=== PATIENT | male | born 1995 | race Caucasian/White ===

== ENCOUNTER 2020-03-15 11:32 | Inpatient (IN) | payer OTHER ==
[~2020-03-15] VITALS: Ht 177.8 cm; Wt 64.7 kg
--- NOTE | 2020-03-15 12:02 | NUR ---
PT STATES HE THINKS HE'S GOING INTO DKA, C/O NAUSEA, CP, AND SOB. 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 CALL LIGHT PLACED WITHIN REACH.
[2020-03-15] MEDS ORDERED: INSU100C SQ-INSULIN (12:07)
[2020-03-15] MEDS ORDERED: INSU100C5 SQ-INSULIN (12:07)
[2020-03-15] MEDS ORDERED: ONDANSETRON 2MG/ML, 2ML ONE (12:20)
[2020-03-15 12:46] LABS: PH, VENOUS 7.239 pH (7.320-7.420)
[2020-03-15 12:47] LABS: BASOPHILS % (AUTO) 1 % (0-1); EOSINOPHILS % (AUTO) 2 % (1-7); LYMPHOCYTES % (AUTO) 21 % (22-44); MEAN CORPUSCULAR HEMOGLOBIN 28.8 pg (27.5-34.5); MEAN CORPUSCULAR HGB CONC 33.8 g/dL (33.2-36.2); MONOCYTES % (AUTO) 4 % (2-9); NEUTROPHILS % (AUTO) 72 % (42-75); PLATELET COUNT 328 x10^3/uL (130-400); RED BLOOD COUNT 5.88 x10^6/uL (4.38-5.82); RED CELL DISTRIBUTION WIDTH 13.5 % (9.4-14.8)
[2020-03-15 12:48] LABS: MD NO
[2020-03-15 12:59] LABS: ALBUMIN 4.4 g/dL (3.4-5.0); ANION GAP 17 mmol/L (5-15); CALCIUM 9.4 mg/dL (8.5-10.1); CHLORIDE 98 mmol/L (98-107)
[2020-03-15] MEDS ORDERED: SODIUM CHLORIDE 0.9% 1,000ML IVBOLUS ONE ×2 (13:00→14:30)
[2020-03-15] MEDS ORDERED: ONDANSETRON 2MG/ML, 2ML IVPush ONE (13:00)
[2020-03-15 13:03] LABS: ALANINE AMINOTRANSFERASE 30 U/L (12-78); ALKALINE PHOSPHATASE 137 U/L (45-117); BILIRUBIN,TOTAL 0.9 mg/dL (0.2-1.0); CREATININE 0.96 mg/dL (0.7-1.3)
[2020-03-15 13:19] LABS: MICROSCOPIC NOT IND
[2020-03-15 13:25] LABS: ACETONE, SERUM Moderate(40mg/dL) (Negative)
[2020-03-15] MEDS ORDERED: INSULIN REGULAR 100 UNITS/ML, 3ML VIAL SQ-INSULIN ONE (14:30)
[2020-03-15] MEDS ORDERED: INSULIN SINGLE DOSE, ER ONE (14:33)
--- NOTE | 2020-03-15 15:11 | NUR ---
REPORT GIVEN TO RECEIVING RN, DISCUSSED NEED FOR [facility] TO BE CHECKED UPON ARRIVAL TO FLOOR.
[2020-03-15 15:34] LABS: ANION GAP 18 mmol/L (5-15); CALCIUM 8.8 mg/dL (8.5-10.1); CHLORIDE 103 mmol/L (98-107); CREATININE 0.86 mg/dL (0.7-1.3)
[2020-03-15] MEDS ORDERED: ACETAMINOPHEN 325 MG TABLET PO PRN (17:00)
[2020-03-15] MEDS ORDERED: INSULIN LISPRO 100 UNIT/ML, 3ML VIAL IVPush ONE (17:00)
[2020-03-15] MEDS ORDERED: ONDANSETRON 2MG/ML, 2ML IVPush PRN (17:00)
[2020-03-15] MEDS ORDERED: ONDANSETRON ODT 4 MG PO PRN (17:00)
[2020-03-15] MEDS ORDERED: TEMAZEPAM 15 MG CAPSULE PO PRN (17:00)
[2020-03-15] MEDS ORDERED: METOCLOPRAMIDE 5 MG/ML, 2ML IVPush PRN (17:00)
[2020-03-15 17:31] VITALS: BP 116/70
[2020-03-15] MEDS ORDERED: ENOXAPARIN 40 MG/0.4 ML SQ SCH (18:00)
[2020-03-15 18:01] LABS: ANION GAP 11 mmol/L (5-15); CALCIUM 8.4 mg/dL (8.5-10.1); CHLORIDE 106 mmol/L (98-107); CREATININE 0.88 mg/dL (0.7-1.3)
[2020-03-15 18:05] LABS: TROPONIN I < 0.015 ng/mL (0.000-0.045)
[2020-03-15] MEDS: INSULIN LISPRO 100 UNIT/ML, 3ML VIAL SQ-INSULIN SCH (18:42)
[2020-03-15] MEDS: NS + 20MEQ KCL 1,000 ML IV SCH (18:43)
[2020-03-15 19:48] VITALS: BP 105/69
[2020-03-15] MEDS ORDERED: INSULIN GLARGINE 100 UNITS/ML, PEN SQ-INSULIN SCH (21:00)
[2020-03-15 21:51] LABS: ANION GAP 8 mmol/L (5-15); CALCIUM 7.8 mg/dL (8.5-10.1); CHLORIDE 107 mmol/L (98-107); CREATININE 1.24 mg/dL (0.7-1.3)
[2020-03-16] MEDS: NS + 20MEQ KCL 1,000 ML IV SCH ×3 (00:42→11:56)
[2020-03-16 01:42] VITALS: BP 95/53
[2020-03-16 02:05] VITALS: BP 104/64
[2020-03-16 02:44] LABS: ANION GAP 5 mmol/L (5-15); CALCIUM 7.7 mg/dL (8.5-10.1); CHLORIDE 110 mmol/L (98-107); CREATININE 0.96 mg/dL (0.7-1.3)
[2020-03-16 07:31] LABS: ANION GAP 6 mmol/L (5-15); CALCIUM 7.9 mg/dL (8.5-10.1); CHLORIDE 113 mmol/L (98-107); CREATININE 0.89 mg/dL (0.7-1.3)
[2020-03-16 07:59] VITALS: BP 113/74
[2020-03-16] MEDS: INSULIN LISPRO 100 UNIT/ML, 3ML VIAL SQ-INSULIN SCH ×2 (08:10→11:29)
[2020-03-16 11:10] LABS: ANION GAP 6 mmol/L (5-15); CALCIUM 7.9 mg/dL (8.5-10.1); CHLORIDE 109 mmol/L (98-107)
== END 2020-03-16 13:06 | disposition home or self-care (01) | DRG 639 ==
LOC: ED 14:41 → SUATTDRO 15:27 → EDIP 16:21 → 3N 17:15 → DCLOUNGE 03-16 12:57
PROVIDERS: ADMIT Internal Medicine; ATTEND Internal Medicine
DX: E10.10 Type 1 diabetes mellitus with ketoacidosis without coma (principal); F17.210 Nicotine dependence, cigarettes, uncomplicated; Z79.4 Long term (current) use of insulin; Z83.3 Family history of diabetes mellitus; Z96.41 Presence of insulin pump (external) (internal); R07.9 Chest pain, unspecified
CPT/HCPCS: 36415; 71045; 80048; 80053; 81003; 82010; 82803; 82962; 83036; 83690; 84484; 85025; 85379; 93005; 96360; 99285; G0378; J1650; J3480; J1815; J1817; J7030

== ENCOUNTER 2020-11-02 09:26 | Inpatient (IN) | payer OTHER ==
[~2020-11-02] VITALS: Ht 177.8 cm; Wt 61.5 kg
[~2020-11-02 09:26] MED LIST: INSU100C SQ-INSULIN; INSU100C5 SQ-INSULIN
--- NOTE | 2020-11-02 09:46 | NUR ---
PT PLACED ON ALL ROOM MONITORING. NS BOLUS INFUSING. VSS. EMESIS BAG AND URINAL AT BS. CALL LIGHT WITHIN REACH. ERP IN TO SEE PT.
[2020-11-02] MEDS ORDERED: DIPHENHYDRAMINE 50 MG/ML, 1ML ONE (09:48)
[2020-11-02] MEDS ORDERED: METOCLOPRAMIDE 5 MG/ML, 2ML ONE (09:48)
--- NOTE | 2020-11-02 09:54 | NUR ---
NS BOLUS FROM [facility] COMPLETED, LR INFUSING PER ERP ORDER.
[2020-11-02] MEDS ORDERED: METOCLOPRAMIDE 5 MG/ML, 2ML IVPush ONE (10:00)
[2020-11-02] MEDS ORDERED: DIPHENHYDRAMINE 50 MG/ML, 1ML IVPush ONE (10:00)
[2020-11-02] MEDS ORDERED: LACTATED RINGERS 1,000 ML IVBOLUS ONE (10:00)
--- NOTE | 2020-11-02 10:10 | NUR ---
LAB IN TO DRAW.
[2020-11-02 10:23] LABS: PH, VENOUS 7.143 pH (7.320-7.420)
[2020-11-02 10:26] LABS: MEAN CORPUSCULAR HEMOGLOBIN 28.2 pg (27.5-34.5); MEAN CORPUSCULAR HGB CONC 32.6 g/dL (33.2-36.2); MEAN PLATELET VOLUME 8.9 fL (7.4-10.4); PLATELET COUNT 310 x10^3/uL (130-400); RED BLOOD COUNT 5.42 x10^6/uL (4.38-5.82); RED CELL DISTRIBUTION WIDTH 13.3 % (9.4-14.8)
[2020-11-02 10:37] LABS: ALANINE AMINOTRANSFERASE 54 U/L (12-78); ALBUMIN 4.2 g/dL (3.4-5.0); ANION GAP 25 mmol/L (5-15); CALCIUM 9.5 mg/dL (8.5-10.1); CHLORIDE 104 mmol/L (98-107)
[2020-11-02 10:40] LABS: ALKALINE PHOSPHATASE 140 U/L (45-117); BILIRUBIN,TOTAL 0.8 mg/dL (0.2-1.0); CREATININE 1.23 mg/dL (0.7-1.3); TOTAL PROTEIN 7.8 g/dL (6.4-8.2)
[2020-11-02] MEDS ORDERED: INSULIN PUMP (10:42)
--- NOTE | 2020-11-02 10:53 | NUR ---
NO VOMITING SINCE MEDS GIVEN IN ER. PT SLEEPING, NAD. MOTHER AT BS. VS UPDATED IN COMPUTER. CALL LIGHT WITHIN REACH.
[2020-11-02 10:58] LABS: ACETONE, SERUM Large (80mg/dL) (Negative)
--- NOTE | 2020-11-02 11:17 | NUR ---
URINE COLLECTED/SENT TO LAB.
[2020-11-02 11:18] LABS: BAND#(MANUAL) 0.89 x10^3/uL; BANDS%(MANUAL) 3 % (0-7); LYMPH#(MANUAL) 2.36 x10^3/uL (1-3.4); LYMPHS% (MANUAL) 8 % (22-44); METAMYELOCYTES% (MANUAL) 1 % (0-1); MONOS#(MANUAL) 0.89 x10^3/uL (0.3-2.7); MONOS% (MANUAL) 3 % (2-9); SEG#(MANUAL) 25.08 x10^3/uL (1.8-6.8); SEGS% (MANUAL) 85 % (42-75)
[2020-11-02 11:19] LABS: <PLATELET ESTIMATE> ADEQUATE; <PLT MORPHOLOGY> NORMAL PLT MORPH; <RBC MORPHOLOGY> NORMAL
[2020-11-02] MEDS ORDERED: ACETAMINOPHEN 325 MG TABLET PO PRN (11:30)
[2020-11-02] MEDS: D5%-0.45NACL+KCL 20MEQ 1,000 ML IV SCH ×2 (11:30→20:37)
[2020-11-02] MEDS ORDERED: SODIUM CHLORIDE 0.9% 1,000 ML IV SCH (11:30)
[2020-11-02] MEDS: ENOXAPARIN 40 MG/0.4 ML SQ SCH (11:30)
--- NOTE | 2020-11-02 11:46 | NUR ---
REPORT CALLED TO [facility]. WILL START INSULIN GTT PRIOR TO TRANSPORT.
[2020-11-02 11:51] LABS: MICROSCOPIC NOT IND
--- NOTE | 2020-11-02 11:53 | NUR ---
REPORT TO [facility]. PT READY FOR TRANSPORT AFTER INSULIN GTT STARTED. MOM TO TURN OFF INSULIN PUMP. MED REQUEST TO PHARMACY FOR INSULIN GTT.
[2020-11-02 12:15] LABS: FREE T4 (FREE THYROXINE) 1.55 ng/dL (0.76-1.46)
[2020-11-02] MEDS: REGULAR INSULIN 100 UNITS in SODIUM CHLORIDE 0.9% 99 ML IV PRN ×2 (12:30→20:47)
[2020-11-02 12:42] VITALS: BP 105/56
[2020-11-02] MEDS ORDERED: SODIUM CHLORIDE 0.9% 500 ML IV ONE (13:00)
[2020-11-02] MEDS ORDERED: SODIUM CHLORIDE 0.9% 1,000ML IVBOLUS ONE (13:30)
[2020-11-02] MEDS: AMPICILLIN/SULBACTAM 3 GM in SODIUM CHLORIDE 0.9% 100 ML IV SCH ×2 (15:37→20:38)
[2020-11-02 16:41] LABS: ANION GAP 14 mmol/L (5-15); CALCIUM 8.6 mg/dL (8.5-10.1); CHLORIDE 116 mmol/L (98-107); CREATININE 1.34 mg/dL (0.7-1.3)
[2020-11-02] MEDS ORDERED: PHENOL THROAT SPRAY BOTTLE MM PRN (17:00)
[2020-11-02] MEDS: POTASSIUM CHLORIDE 20 MEQ in SODIUM CHLORIDE 0.45% 1,000 ML IV SCH ×2 (17:45→20:39)
[2020-11-02] MEDS: ONDANSETRON 2MG/ML, 2ML IV PRN (18:45)
[2020-11-02] MEDS: FAMOTIDINE 20 MG/2 ML IVPush SCH (20:38)
[2020-11-02 20:57] LABS: ANION GAP 6 mmol/L (5-15); CALCIUM 8.9 mg/dL (8.5-10.1); CHLORIDE 120 mmol/L (98-107); CREATININE 1.19 mg/dL (0.7-1.3)
[2020-11-03 01:12] LABS: ANION GAP 7 mmol/L (5-15); CALCIUM 8.8 mg/dL (8.5-10.1); CHLORIDE 119 mmol/L (98-107); CREATININE 1.01 mg/dL (0.7-1.3)
[2020-11-03] MEDS: DEXTROSE 10% 1,000 ML IV SCH ×2 (02:30→20:43)
[2020-11-03] MEDS ORDERED: DEXTROSE 10%, 1,000ML IV ONE (02:30)
[2020-11-03] MEDS: AMPICILLIN/SULBACTAM 3 GM in SODIUM CHLORIDE 0.9% 100 ML IV SCH ×4 (03:15→20:44)
[2020-11-03] MEDS: ONDANSETRON 2MG/ML, 2ML IV PRN (03:34)
[2020-11-03] MEDS: POTASSIUM CHLORIDE 20 MEQ in SODIUM CHLORIDE 0.45% 1,000 ML IV SCH ×3 (04:45→20:53)
[2020-11-03] MEDS: D5%-0.45NACL+KCL 20MEQ 1,000 ML IV SCH ×2 (05:05→14:55)
[2020-11-03 05:20] LABS: CHLORIDE 117 mmol/L (98-107)
[2020-11-03 05:35] LABS: ANION GAP 7 mmol/L (5-15); CALCIUM 8.6 mg/dL (8.5-10.1); CREATININE 0.99 mg/dL (0.7-1.3)
[2020-11-03 06:40] LABS: MEAN CORPUSCULAR HEMOGLOBIN 28.3 pg (27.5-34.5); MEAN CORPUSCULAR HGB CONC 33.5 g/dL (33.2-36.2); MEAN PLATELET VOLUME 8.2 fL (7.4-10.4); PLATELET COUNT 292 x10^3/uL (130-400); RED BLOOD COUNT 4.95 x10^6/uL (4.38-5.82); RED CELL DISTRIBUTION WIDTH 13.8 % (9.4-14.8)
[2020-11-03 08:01] LABS: <RBC MORPHOLOGY> NORMAL; BAND#(MANUAL) 1.35 x10^3/uL; BANDS%(MANUAL) 5 % (0-7); LYMPH#(MANUAL) 1.08 x10^3/uL (1-3.4); LYMPHS% (MANUAL) 4 % (22-44); MONOS#(MANUAL) 2.42 x10^3/uL (0.3-2.7); MONOS% (MANUAL) 9 % (2-9); SEG#(MANUAL) 22.06 x10^3/uL (1.8-6.8); SEGS% (MANUAL) 82 % (42-75)
[2020-11-03 08:02] LABS: <PLATELET ESTIMATE> ADEQUATE; <PLT MORPHOLOGY> NORMAL PLT MORPH
[2020-11-03 08:19] LABS: ANION GAP 6 mmol/L (5-15); CALCIUM 8.6 mg/dL (8.5-10.1); CHLORIDE 118 mmol/L (98-107); CREATININE 0.98 mg/dL (0.7-1.3)
[2020-11-03] MEDS ORDERED: ONDANSETRON 2MG/ML, 2ML IV PRN (09:00)
[2020-11-03] MEDS: FAMOTIDINE 20 MG/2 ML IVPush SCH (09:03)
[2020-11-03] MEDS: ONDANSETRON 2MG/ML, 2ML IV SCH ×3 (09:04→21:37)
[2020-11-03] MEDS: MAALOX/HYOSCYAMINE/LIDOCAINE 45 ML BTL PO SCH ×3 (10:50→21:37)
[2020-11-03] MEDS: PANTOPRAZOLE 40 MG IV IVPush SCH ×2 (10:50→20:43)
[2020-11-03] MEDS: REGULAR INSULIN 100 UNITS in SODIUM CHLORIDE 0.9% 99 ML IV PRN (10:51)
[2020-11-03] MEDS: CALCIUM CARBONATE 500 MG TAB.CHEW PO SCH ×3 (11:00→21:06)
[2020-11-03] MEDS ORDERED: D5%-0.45NACL+KCL 20MEQ 1,000 ML IV SCH ×2 (11:30)
[2020-11-03] MEDS: ENOXAPARIN 40 MG/0.4 ML SQ SCH (12:08)
[2020-11-03 13:16] LABS: ANION GAP 5 mmol/L (5-15); CALCIUM 8.5 mg/dL (8.5-10.1); CHLORIDE 116 mmol/L (98-107); CREATININE 0.81 mg/dL (0.7-1.3)
[2020-11-03] MEDS ORDERED: MORPHINE SULFATE 4 MG/ML, 1ML IVPush PRN (14:30)
[2020-11-03 16:51] LABS: ANION GAP 5 mmol/L (5-15); CALCIUM 8.7 mg/dL (8.5-10.1); CHLORIDE 115 mmol/L (98-107); CREATININE 0.98 mg/dL (0.7-1.3)
[2020-11-03] MEDS ORDERED: OMNIPAQUE 350 MG/ML, 100ML BOTTLE ONE (17:14)
[2020-11-03] MEDS ORDERED: PROCHLORPERAZINE 5 MG/ML, 2ML IV PRN (20:30)
[2020-11-03 21:11] LABS: ANION GAP 5 mmol/L (5-15); CALCIUM 8.6 mg/dL (8.5-10.1); CHLORIDE 115 mmol/L (98-107)
[2020-11-03 21:12] LABS: CREATININE 0.83 mg/dL (0.7-1.3)
[2020-11-04] MEDS: D5%-0.45NACL+KCL 20MEQ 1,000 ML IV SCH ×2 (00:07→12:59)
[2020-11-04] MEDS: AMPICILLIN/SULBACTAM 3 GM in SODIUM CHLORIDE 0.9% 100 ML IV SCH ×4 (00:07→21:19)
[2020-11-04 00:59] LABS: ANION GAP 3 mmol/L (5-15); CALCIUM 8.6 mg/dL (8.5-10.1); CHLORIDE 115 mmol/L (98-107); CREATININE 0.86 mg/dL (0.7-1.3)
[2020-11-04] MEDS: ONDANSETRON 2MG/ML, 2ML IV SCH ×4 (03:17→21:22)
[2020-11-04] MEDS: CALCIUM CARBONATE 500 MG TAB.CHEW PO SCH ×5 (04:13→21:22)
[2020-11-04] MEDS: MAALOX/HYOSCYAMINE/LIDOCAINE 45 ML BTL PO SCH ×5 (04:13→22:13)
[2020-11-04 04:41] LABS: ANION GAP 4 mmol/L (5-15); CALCIUM 8.6 mg/dL (8.5-10.1); CHLORIDE 113 mmol/L (98-107)
[2020-11-04 04:45] LABS: ALKALINE PHOSPHATASE 101 U/L (45-117); CREATININE 0.71 mg/dL (0.7-1.3)
[2020-11-04 05:04] LABS: BASOPHILS % (AUTO) 0 % (0-1); EOSINOPHILS % (AUTO) 0 % (1-7); LYMPHOCYTES % (AUTO) 7 % (22-44); MEAN CORPUSCULAR HEMOGLOBIN 28.1 pg (27.5-34.5); MEAN CORPUSCULAR HGB CONC 33.6 g/dL (33.2-36.2); MONOCYTES % (AUTO) 9 % (2-9); NEUTROPHILS % (AUTO) 84 % (42-75); PLATELET COUNT 242 x10^3/uL (130-400); RED CELL DISTRIBUTION WIDTH 13.7 % (9.4-14.8)
[2020-11-04] MEDS ORDERED: METOCLOPRAMIDE 5 MG/ML, 2ML IVPush ONE (05:30)
[2020-11-04] MEDS ORDERED: PROMETHAZINE 25 MG/ML, 1ML IM ONE (07:00)
[2020-11-04] MEDS: PANTOPRAZOLE 40 MG IV IVPush SCH ×2 (10:04→22:12)
[2020-11-04 10:15] LABS: ANION GAP 4 mmol/L (5-15); CALCIUM 8.5 mg/dL (8.5-10.1); CHLORIDE 113 mmol/L (98-107)
[2020-11-04 10:16] LABS: CREATININE 0.75 mg/dL (0.7-1.3)
[2020-11-04] MEDS: ENOXAPARIN 40 MG/0.4 ML SQ SCH (11:06)
[2020-11-04] MEDS ORDERED: METOCLOPRAMIDE 5 MG/ML, 2ML IVPush PRN (12:00)
[2020-11-04] MEDS: METOCLOPRAMIDE 5 MG/ML, 2ML IVPush SCH ×3 (12:04→23:16)
[2020-11-04 16:08] LABS: CALCIUM 8.3 mg/dL (8.5-10.1); CHLORIDE 114 mmol/L (98-107); CREATININE 0.69 mg/dL (0.7-1.3)
[2020-11-04 16:30] LABS: ANION GAP 3 mmol/L (5-15)
[2020-11-04] MEDS: REGULAR INSULIN 100 UNITS in SODIUM CHLORIDE 0.9% 99 ML IV PRN (18:12)
[2020-11-04 22:08] LABS: ANION GAP 0 mmol/L (5-15); CALCIUM 8.3 mg/dL (8.5-10.1); CHLORIDE 112 mmol/L (98-107); CREATININE 0.62 mg/dL (0.7-1.3)
[2020-11-05] MEDS: D5%-0.45NACL+KCL 20MEQ 1,000 ML IV SCH ×3 (00:12→16:28)
[2020-11-05] MEDS: POTASSIUM CHLORIDE 20 MEQ in SODIUM CHLORIDE 0.45% 1,000 ML IV SCH ×2 (00:40→07:20)
[2020-11-05] MEDS: ONDANSETRON 2MG/ML, 2ML IV SCH ×4 (02:14→19:58)
[2020-11-05] MEDS: AMPICILLIN/SULBACTAM 3 GM in SODIUM CHLORIDE 0.9% 100 ML IV SCH ×4 (02:14→21:12)
[2020-11-05] MEDS: MAALOX/HYOSCYAMINE/LIDOCAINE 45 ML BTL PO SCH ×2 (04:26→10:50)
[2020-11-05 04:41] LABS: BASOPHILS % (AUTO) 0 % (0-1); EOSINOPHILS % (AUTO) 0 % (1-7); LYMPHOCYTES % (AUTO) 19 % (22-44); MEAN CORPUSCULAR HEMOGLOBIN 28.4 pg (27.5-34.5); MEAN CORPUSCULAR HGB CONC 33.9 g/dL (33.2-36.2); MEAN PLATELET VOLUME 7.8 fL (7.4-10.4); MONOCYTES % (AUTO) 10 % (2-9); NEUTROPHILS % (AUTO) 71 % (42-75); PLATELET COUNT 189 x10^3/uL (130-400); RED CELL DISTRIBUTION WIDTH 13.4 % (9.4-14.8)
[2020-11-05 04:50] LABS: ALBUMIN 2.3 g/dL (3.4-5.0); ANION GAP 2 mmol/L (5-15); CALCIUM 7.9 mg/dL (8.5-10.1); CHLORIDE 110 mmol/L (98-107)
[2020-11-05 04:55] LABS: ALANINE AMINOTRANSFERASE 36 U/L (12-78); ALKALINE PHOSPHATASE 81 U/L (45-117); BILIRUBIN,TOTAL 0.6 mg/dL (0.2-1.0); CREATININE 0.53 mg/dL (0.7-1.3); TOTAL PROTEIN 5.5 g/dL (6.4-8.2)
[2020-11-05] MEDS: CALCIUM CARBONATE 500 MG TAB.CHEW PO SCH ×4 (05:32→19:58)
[2020-11-05] MEDS: METOCLOPRAMIDE 5 MG/ML, 2ML IVPush SCH ×3 (05:58→18:54)
[2020-11-05] MEDS ORDERED: POTASSIUM CHLORIDE 20 MEQ in SODIUM CHLORIDE 0.9% 250 ML IV ONE (06:00)
[2020-11-05] MEDS: PANTOPRAZOLE 40 MG IV IVPush SCH ×2 (10:50→22:38)
[2020-11-05] MEDS ORDERED: PROMETHAZINE 25 MG/ML, 1ML IM PRN (11:30)
[2020-11-05] MEDS ORDERED: PROMETHAZINE 25 MG/ML, 1ML ONE (11:45)
[2020-11-05] MEDS: ENOXAPARIN 40 MG/0.4 ML SQ SCH (11:48)
[2020-11-05] MEDS ORDERED: MAALOX/HYOSCYAMINE/LIDOCAINE 45 ML BTL PO PRN (15:30)
[2020-11-05] MEDS: SUCRALFATE 1 GM/10 ML UDC PO SCH ×2 (16:29→19:58)
[2020-11-05] MEDS: REGULAR INSULIN 100 UNITS in SODIUM CHLORIDE 0.9% 99 ML IV PRN (16:29)
[2020-11-06] MEDS: METOCLOPRAMIDE 5 MG/ML, 2ML IVPush SCH ×5 (00:18→23:54)
[2020-11-06] MEDS: D5%-0.45NACL+KCL 20MEQ 1,000 ML IV SCH ×2 (00:54→09:43)
[2020-11-06] MEDS: ONDANSETRON 2MG/ML, 2ML IV SCH ×4 (03:00→20:31)
[2020-11-06] MEDS: AMPICILLIN/SULBACTAM 3 GM in SODIUM CHLORIDE 0.9% 100 ML IV SCH ×2 (03:20→09:06)
[2020-11-06 04:39] LABS: BASOPHILS % (AUTO) 0 % (0-1); EOSINOPHILS % (AUTO) 1 % (1-7); LYMPHOCYTES % (AUTO) 29 % (22-44); MEAN CORPUSCULAR HEMOGLOBIN 28.9 pg (27.5-34.5); MEAN CORPUSCULAR HGB CONC 34.6 g/dL (33.2-36.2); MEAN PLATELET VOLUME 7.6 fL (7.4-10.4); MONOCYTES % (AUTO) 9 % (2-9); NEUTROPHILS % (AUTO) 61 % (42-75); PLATELET COUNT 182 x10^3/uL (130-400); RED BLOOD COUNT 4.93 x10^6/uL (4.38-5.82); RED CELL DISTRIBUTION WIDTH 13.1 % (9.4-14.8)
[2020-11-06 04:43] LABS: ALANINE AMINOTRANSFERASE 34 U/L (12-78); ALBUMIN 2.4 g/dL (3.4-5.0); ANION GAP 6 mmol/L (5-15); CALCIUM 7.8 mg/dL (8.5-10.1); CHLORIDE 103 mmol/L (98-107); CREATININE 0.56 mg/dL (0.7-1.3)
[2020-11-06 04:45] LABS: ALKALINE PHOSPHATASE 93 U/L (45-117); BILIRUBIN,TOTAL 0.8 mg/dL (0.2-1.0)
[2020-11-06] MEDS ORDERED: POTASSIUM CHLORIDE 40 MEQ in SODIUM CHLORIDE 0.9% 500 ML IV ONE (06:00)
[2020-11-06] MEDS: CALCIUM CARBONATE 500 MG TAB.CHEW PO SCH ×4 (06:09→20:31)
[2020-11-06] MEDS: SUCRALFATE 1 GM/10 ML UDC PO SCH ×4 (07:38→20:31)
[2020-11-06] MEDS: PANTOPRAZOLE 40 MG IV IVPush SCH ×2 (10:09→22:47)
[2020-11-06] MEDS: ENOXAPARIN 40 MG/0.4 ML SQ SCH (10:55)
[2020-11-06] MEDS ORDERED: DEXTROSE 4 GM TAB.CHEW PO PRN (14:00)
[2020-11-06] MEDS ORDERED: GLUCAGON 1 MG IM PRN (14:00)
[2020-11-06] MEDS ORDERED: DEXTROSE 50%, 50ML SYRINGE IVPush PRN (14:00)
[2020-11-06 19:29] VITALS: BP 129/83
[2020-11-06] MEDS: SODIUM CHLORIDE FLUSH 10ML SYR IVF SCH (20:31)
[2020-11-07] MEDS: ONDANSETRON 2MG/ML, 2ML IV SCH ×2 (03:02→10:38)
[2020-11-07 05:54] LABS: ANION GAP 4 mmol/L (5-15); CHLORIDE 103 mmol/L (98-107); CREATININE 0.53 mg/dL (0.7-1.3)
[2020-11-07] MEDS: SUCRALFATE 1 GM/10 ML UDC PO SCH ×2 (05:55→10:38)
[2020-11-07] MEDS: CALCIUM CARBONATE 500 MG TAB.CHEW PO SCH ×2 (05:55→10:39)
[2020-11-07] MEDS: METOCLOPRAMIDE 5 MG/ML, 2ML IVPush SCH ×2 (05:55→12:00)
[2020-11-07 06:22] VITALS: BP 135/85
[2020-11-07] MEDS: PANTOPRAZOLE 40 MG IV IVPush SCH (10:38)
[2020-11-07] MEDS: SODIUM CHLORIDE FLUSH 10ML SYR IVF SCH (10:38)
[2020-11-07] MEDS: ENOXAPARIN 40 MG/0.4 ML SQ SCH (10:39)
[2020-11-07 12:07] VITALS: BP 132/87
== END 2020-11-07 15:25 | disposition home or self-care (01) | DRG 871 ==
LOC: ED 11:34 → CSU 12:48 → 4NW 11-06 14:28
PROVIDERS: ADMIT Hospitalist; ATTEND Internal Medicine
DX: A41.9 Sepsis, unspecified organism (principal); E10.10 Type 1 diabetes mellitus with ketoacidosis without coma; N17.9 Acute kidney failure, unspecified; D72.823 Leukemoid reaction; K21.9 Gastro-esophageal reflux disease without esophagitis; E86.0 Dehydration; K31.84 Gastroparesis; E10.43 Type 1 diabetes mellitus with diabetic autonomic (poly)neuropathy; Z96.41 Presence of insulin pump (external) (internal); Z80.41 Family history of malignant neoplasm of ovary; Z79.4 Long term (current) use of insulin
CPT/HCPCS: 36415; 70450; 71045; 74177; 76700; 80048; 80053; 81003; 82010; 82803; 82962; 83036; 83690; 83735; 84075; 84100; 84145; 84439; 84443; 85025; 87040; 87081; 87880; 96361; 96374; 96375; 99285; G0378; J0295; J1650; J1815; J2405; J2550; J3480; Q9967; C9113; J0780; J1200; J2270; J2765; J7030; J7040; J7050; J7120